=== PATIENT | male | born 1955 | race Caucasian/White ===

== ENCOUNTER 2024-10-05 19:37 | Emergency (ER) | payer MEDICARE, MEDICAID ==
[~2024-10-05] VITALS: Ht 177.8 cm; Wt 118.0 kg
[2024-10-05 20:23] VITALS: O2SAT 98
[2024-10-05] MEDS: KETOROLAC 15MG/ML VIAL IM ONE (23:07)
[2024-10-06] MEDS ORDERED: LIDO700A15 TP (01:19)
[2024-10-06] MEDS ORDERED: NAPR-1176 MT (01:19)
[2024-10-06 02:00] VITALS: BP 148/87; PULSE 100; RESP 18; TEMP 36.55848; O2SAT 98
== END 2024-10-06 02:00 | disposition home or self-care (01) ==
LOC: ER 19:37
DX: M25.562 Pain in left knee (principal); I11.0 Hypertensive heart disease with heart failure; I50.9 Heart failure, unspecified; Z79.1 Long term (current) use of non-steroidal anti-inflammatories (NSAID); V09.9XXA Pedestrian injured in unspecified transport accident, initial encounter; Y93.89 Activity, other specified; Y92.89 Other specified places as the place of occurrence of the external cause; Y99.8 Other external cause status
CPT/HCPCS: 99283; 73562; 96372; J1885

== ENCOUNTER 2025-02-08 22:49 | Emergency (ER) | payer OTHER, MEDICAID ==
[~2025-02-08] VITALS: Ht 180.3 cm; Wt 109.0 kg
[~2025-02-08 22:49] MED LIST: LIDO700A15 TP; NAPR-1176 MT
[2025-02-08 22:58] VITALS: O2SAT 95
[2025-02-08 23:27] LABS: BASOPHILS % 0.6 % (0.0-2.0); HEMATOCRIT. 39.6 % (42.0-52.0); HEMOGLOBIN. 13.2 g/dL (14.0-18.0); LYMPHOCYTES % 30.7 % (20.0-50.0); MEAN CORPUSCULAR HEMOGLOBIN 28.4 pg (28.0-32.0); MEAN CORPUSCULAR HGB CONC 33.4 g/dL (31.0-37.0); MEAN PLATELET VOLUME 7.1 fl (7.4-10.4); MONOCYTES % 10.1 % (2.0-8.0); NEUTROPHILS % 55.6 % (40.0-76.0); PLATELET 146 x1000/uL (130-400); RED BLOOD CELL COUNT 4.66 mill/uL (4.7-6.1); RED CELL DISTRIBUTION WIDTH 15.6 % (11.6-14.6); WHITE BLOOD COUNT 5.2 x1000/uL (4.5-11.0)
[2025-02-08 23:36] LABS: CHLORIDE 105 mEq/L (98-107); POTASSIUM 3.4 mEq/L (3.5-5.1); SODIUM 141 mEq/L (136-145)
[2025-02-08 23:37] LABS: CALCIUM 9.5 mg/dL (8.7-10.4); CARBON DIOXIDE 28 mEq/L (21-32)
[2025-02-08 23:42] LABS: CREATININE 1.2 mg/dL (0.6-1.3); ETHANOL BLOOD 26 mg/dL (<10); GLUCOSE 118 mg/dL (70-105); UREA NITROGEN BLOOD 13 mg/dL (9-23)
[2025-02-08 23:43] LABS: TROPONIN I HIGH SENSITIVITY 7 ng/L (3.0-53)
[2025-02-08 23:54] LABS: PARTIAL THROMBOPLASTIN TIME 25.4 sec (23.4-31.0); PROTHROMBIN TIME 10.4 sec (9.6-11.0)
[2025-02-09] MEDS: ASPIRIN 325MG EC TABLET PO ONE (01:30)
[2025-02-09] MEDS: POTASSIUM CHLORIDE 20MEQ/PACKET PO NR (01:30)
[2025-02-09 01:53] LABS: TROPONIN I HIGH SENSITIVITY 6 ng/L (3.0-53)
[2025-02-09] MEDS ORDERED: ASPI-1497 MT (02:25)
[2025-02-09 02:54] VITALS: BP 171/100; PULSE 90; RESP 16; TEMP 36.9; O2SAT 95
== END 2025-02-09 02:56 | disposition home or self-care (01) ==
LOC: ER 22:49
DX: I25.118 Atherosclerotic heart disease of native coronary artery with other forms of angina pectoris (principal); F10.129 Alcohol abuse with intoxication, unspecified; F12.10 Cannabis abuse, uncomplicated; I11.0 Hypertensive heart disease with heart failure; I50.9 Heart failure, unspecified; Z00.00 Encounter for general adult medical examination without abnormal findings; Z79.82 Long term (current) use of aspirin; Y90.1 Blood alcohol level of 20-39 mg/100 ml
CPT/HCPCS: 36415; 71045; 80048; 80320; 83880; 84484; 85025; 93005; 99285; G0480

== ENCOUNTER 2025-07-03 11:31 | Emergency (ER) | payer OTHER ==
[~2025-07-03] VITALS: Ht 177.8 cm; Wt 105.0 kg
[~2025-07-03 11:31] MED LIST changes: +ASPI-1497 MT; +LIDO-53 TP; -LIDO700A15 TP
[2025-07-03 11:44] VITALS: O2SAT 98
[2025-07-03 15:54] VITALS: BP 161/88; PULSE 97; RESP 19; TEMP 36.9; O2SAT 100
== END 2025-07-03 15:55 | disposition home or self-care (01) ==
LOC: ER 11:31
DX: M79.602 Pain in left arm (principal); I11.0 Hypertensive heart disease with heart failure; I50.9 Heart failure, unspecified; I63.9 Cerebral infarction, unspecified; F10.90 Alcohol use, unspecified, uncomplicated; Z71.82 Exercise counseling; Z79.1 Long term (current) use of non-steroidal anti-inflammatories (NSAID); Z79.82 Long term (current) use of aspirin; Y90.9 Presence of alcohol in blood, level not specified
CPT/HCPCS: 93971; 99284